=== PATIENT | male | born 1970 | race Caucasian/White ===

== ENCOUNTER 2016-08-28 16:42 | Emergency (ER) | payer MEDICARE, MEDICAID ==
--- NOTE | 2016-08-28 16:45 | ED Physician Chart ---
Chief Complaint/HPI - Patient Information Date Seen:: 08/28/16 Time Seen:: 16:45 Chief Complaint:: medication refill History of Present Illness:: 46-year-old male with history of schizophrenia and hypertension here for acute, severe, need for medication refill since this morning after he ran out of his Haldol and propranolol. Has associated inability to get his medication because he does not have a primary care physician. Allergies:: Allergies Allergy/AdvReac Type Severity Reaction Status Date / Time No Known Allergies Allergy Verified 02/24/16 13:13 Historian:: Patient Review:: Nurse's Note Reviewed Review of Systems - Review of Systems Other: Complete system review otherwise unremarkable except as noted in history of present illness. Past Medical History - Past Medical History Past Medical History: HTN, Other (schizophrenia) Family History: None Social History: Smoker, No Alcohol, No Drug Use, Other Surgical History: None Psychiatricy History: Schizophrenia Medication: Reviewed Family Medical History - Family Member Mother History Unknown: Yes Physical Exam - Physical Examination Other:: INITIAL VITAL SIGNS: Reviewed by me GENERAL: Alert and interactive. No acute distress HEAD: Head is normocephalic and atraumatic EYES: EOMI. PERRL. No scleral icterus. No conjunctival injection ENT: Moist mucous membranes. NECK: Supple. No masses. Full range of motion RESPIRATORY: No tachypnea. Clear breath sounds bilaterally. No wheezing, rales, or rhonchi CV: Regular rate and rhythm. No murmurs, rubs, or gallops ABDOMEN: Soft, non-distended, non-tender. No guarding. No rebound. No masses. EXTREMITIES: No deformity. No cyanosis. No edema. SKIN: Warm and dry. No obvious rashes. NEUROLOGIC: Alert and oriented. Face is symmetric. Speech is normal. Moves all extremities equally. Motor and sensory distally intact. ED Septic Shock - . Is Septic Shock (SBP<90, OR Lactate>4 mmol\L) present?: No Reassessment (Disposition) - Reassessment Reassessment:: As a courtesy we will refill her medication for 5 days. He will need to find her primary care physician is that is assigned to 3 year [employer] insurance. I discussed this with the patient in detail. He says he understands and agrees the plan. Reassessment Condition:: Improved - Diagnosis Diagnosis:: Acute need for medication refill - Aftercare/Follow up Instructions Aftercare/Follow-Up Instructions:: Counseled pt regarding lab results/diagnosis & need follow up, Refer to Discharge Instructions Medication Prescribed:: Haldol 10 mg by mouth twice a day #10 Propranolol 20 mg by mouth twice a day #10 - Patient Disposition Discharge/Transfer:: Home Time:: 17:06 Condition at Disposition:: Improved ED Discharge Plan - Patient Disposition Admit/Discharge/Transfer: PT DISCHARGED HOME Condition at Disposition: Improved Additional Instructions: As a courtesy we'll provide you with 5 days worth of your psychiatric medications. Emergency rooms and emergency room physicians are not primary care physicians nor are they psychiatric physicians. You can contact your insurance company to find out who he is been assigned to for primary care. For refills of these medications he will need to have a primary care or psychiatric physician prescribing history on a regular basis.
== END 2016-08-28 17:30 | disposition home or self-care (01) ==
LOC: ER 16:42
DX: F20.9 Schizophrenia, unspecified (principal); I10 Essential (primary) hypertension; F17.200 Nicotine dependence, unspecified, uncomplicated; Z76.0 Encounter for issue of repeat prescription
CPT/HCPCS: Z7502